=== PATIENT | female | born 1990 | race Caucasian/White ===

== ENCOUNTER 2021-06-21 17:36 | Emergency (ER) | payer MEDICAID, SELFPAY ==
[2021-06-21 17:45] VITALS: BP 145/88; PULSE 105; RESP 20; TEMP 37; O2SAT 100; BMI 27.7
--- NOTE | 2021-06-21 18:52 | HMH.EDUTC ---
[facility] [place] Impression: Shingles Qualifiers: Herpes zoster complications: without complications Qualified Code(s): B02.9 - Zoster without complications Disposition: Home, Self-Care Condition on Discharge: Good Instructions: Shingles, DI for Shingles Additional Instructions: Stop taking the Valacyclovir and start the Famivir Follow up with Family Doctor if no improvement or any worsening of symptoms Follow up with Eye Doctor for more through exam of eyes Return if needed Straight to ER if any life threatening symptoms Prescriptions: Famciclovir 500 mg PO Q8H 7 Days #21 tab Transmission Status: Received by [id number] Referrals: Provider,Referral, [Primary Care Provider] - As needed Time of Disposition: 19:09 Medical Decision Making - David Inquiry Pt receiving controlled substance: No David was queried for this patient: No Vital Signs: 06/21/21 17:45 06/21/21 19:20 Temperature 98.6 F 98.6 F Temperature Source Oral Pulse Rate 105 H Pulse Rate [Right Brachial] 105 H Respiratory Rate 20 20 Blood Pressure 145/88 H Blood Pressure [Right Arm] 145/88 H Blood Pressure Mean [Right Arm] 107 Blood Pressure Source [Right Arm] Automatic Cuff Blood Pressure Position [Right Arm] Sitting 02 Sat by Pulse Oximetry 100 Oxygen Delivery Method Room Air [facility] [place] - General Stated complaint: rash/ Time Seen by Provider: 06/21/21 18:52 Mode of Arrival: Ambulatory Source of Information: Patient Limitations: No Limitations Description of Symptoms (Recalled from Triage Doc. by RN): PATIENT C/O SHINGLES TO LEFT SIDE OF BACK AND LEFT EYELID THAT STARTED SUNDAY. ALSO C/O NUMBNESS AND TINGLING TO LEFT SIDE OF FACE AND LEG. SHE ALSO REPORTS TIGHTNESS IN THROAT WHEN SHE EATS AND SWELLING TO BOTTOM LIP HEENT Symptoms (Recalled from RN notes): No Resp Symptoms (Recalled from RN notes): No Skin Symptoms (Recalled from RN notes): Yes MS Symptoms (Recalled from RN notes): No Functional Status (Recalled from RN notes): WNL - History of Present Illness Provider Complaint: Patient states that she has a history of shingles States that she noticed she started having tingly like burning feeling in her left side where she has had shingles before and broke out in rash and also having burning like tingly feeling on her nose and beside her left eye and felt like her eye was twitching noticed today that she had a couple bumps on the inside of her nose State that she is also having tingly pain in her leg but does not have rash at this time State that she noticed after taking Valacyclovir her lips felt tingly and swelled and felt like her throat was scratchy like it was hard to swallow State that she took some benadryl and now that is better and lip no longer swollen and denies vision changes States that she was worried that she may be allergic to the Valacyclovir she has been taking for her shingles - Related Data Previous Rx's Medication Instructions Recorded Famciclovir 500 mg PO Q8H 7 Days #21 tab 06/21/21 Allergies Allergy/AdvReac Type Severity Reaction Status Date / Time No Known Allergies Allergy Verified 06/21/21 18:16 - Worker's Comp Is this a Worker's Comp case?: No [facility] History - Hepatitis A Screen Drug use history?: No High risk sexual behaviors?: No History of sexually transmitted infection?: No Currently employed?: No Childcare worker?: No Do you have indoor plumbing?: Yes Do you have electricity?: Yes Attestation statement:: This patient has been screened for Hepatitis A risk factors. I have reviewed the patient's past medical history: Yes - Social History Alcohol Intake: never Occupational Status: other ROS Obtained: Yes All systems reviewed & no additional complaints, Yes Systems reviewed as appropriate & no additional complaints - Constitutional Constitutional: Reports system reviewed and no additional complaints, except as docu, Reports headache(s) - Eyes E
[2021-06-21 19:20] VITALS: BP 145/88; PULSE 105; RESP 20; TEMP 37; O2SAT 100
== END 2021-06-21 19:24 | disposition home or self-care (01) ==
PROVIDERS: Emergency Provider Nurse Practitioner
DX: B02.9 Zoster without complications (principal); R20.0 Anesthesia of skin; T37.5X5A Adverse effect of antiviral drugs, initial encounter
CPT/HCPCS: 99202; G0463